=== PATIENT | female | born 1990 | race Caucasian/White ===

== ENCOUNTER 2021-05-24 21:52 | Emergency (ER) | payer OTHER ==
[2021-05-25] MEDS ORDERED: Acetaminophen 325 MG Tab PO ONE (01:26)
[2021-05-25] MEDS ORDERED: Iopamidol 755 Mg/ML 100 ML Bottle IVPUSH ONE (02:10)
[2021-05-25] MEDS ORDERED: Ketorolac 30 MG/ML SDV IM ONE (03:42)
[2021-05-25] MEDS ORDERED: Orphenadrine 60 MG/2 ML Inj IM ONE (03:42)
== END 2021-05-25 03:56 | disposition home or self-care (01) ==
LOC: VM.ED 21:52
DX: G43.909 Migraine, unspecified, not intractable, without status migrainosus (principal); Z79.899 Other long term (current) drug therapy
CPT/HCPCS: 70450; 70496; 96372; 99283; 99284-25; A9270-GY; J1885; J2360; Q9967